=== PATIENT | female | born 1995 | race Caucasian/White ===

== ENCOUNTER 2018-08-02 17:04 | Emergency (ER) | payer OTHER, MEDICAID, SELFPAY ==
[2018-08-02 17:05] VITALS: BP 112/81; PULSE 67; RESP 16; TEMP 36.2; O2SAT 99
--- NOTE | 2018-08-02 19:38 | ED_ITS ---
HPI - Abdominal Pain <ASHISH Batres - Last Filed: 08/02/18 22:45> General Chief Complaint: Abdominal Pain Stated Complaint: lower left abdominal pain Time Seen by Provider: 08/02/18 19:12 Source: patient Mode of arrival: ambulatory Limitations: no limitations History of Present Illness HPI narrative: 22-year-old female with history of asthma here for complaint of left lower quadrant pain that started earlier today. She denies any trauma to the area. She states her last bowel movement was last night and was unremarkable. She denies any urinary symptoms. No flank pain. No nausea or vomiting. No urinary symptoms. She has tolerated p.o. intake. She denies any vaginal discharge or bleeding. No other concerns or complaints at this timeframe. She does not know her last menstrual cycle and she states she has irregular periods. She denies any stressors relievers of symptoms. MD complaint: abdominal pain Related Data Previous Rx's Medication Instructions Recorded ondansetron [Zofran ODT] 4 mg SUBLINGUAL Q6HP PRN #20 odt 02/15/17 albuterol sulfate [Ventolin HFA] 0 puff INH Q4HP PRN #1 ea 06/15/17 prednisone 40 mg PO QDAY #8 tab 06/15/17 Allergies Allergy/AdvReac Type Severity Reaction Status Date / Time No Known Allergies Allergy Uncoded 08/22/17 12:25 Review of Systems <ASHISH Batres - Last Filed: 08/02/18 22:45> Constitutional Denies chills, Denies fever(s), Denies lethargy and Denies weakness Eyes Denies change in vision, Denies eye discharge, Denies irritation and Denies loss of vision ENT Ears, Nose, Mouth, and Throat: Denies change in voice, Denies neck pain and Denies sore throat Cardiovascular Denies chest pain, Denies irregular heart rhythm, Denies lightheadedness, Denies palpitations, Denies dyspnea, Denies dyspnea on exertion and Denies orthopnea Respiratory Denies cough, Denies dyspnea, Denies dyspnea on exertion and Denies wheezing Gastrointestinal Gastrointestinal: Reports abdominal pain, Denies change in bowel habits, Denies diarrhea, Denies nausea and Denies vomiting Musculoskeletal Denies neck pain Neurologic Denies loss of vision and Denies weakness Endocrine Denies palpitations Hematologic/Lymphatic Denies easy bruising Allergic/Immunologic Denies wheezing Exam <ASHISH Batres - Last Filed: 08/02/18 22:45> Initial Vital Signs Initial Vital Signs: Vital Signs Temperature 97.1 F L 08/02/18 17:05 Pulse Rate 67 08/02/18 17:05 Respiratory Rate 16 08/02/18 17:05 Blood Pressure 112/81 08/02/18 17:05 Pulse Oximetry 99 08/02/18 17:05 Const General: cooperative and well developed Nutritional Appearance: well nourished Orientation: alert, awake, oriented x3 and not confused [facility] Mouth: oral mucosae normal and moist mucous membranes Eyes Conjunctivae: conjunctivae normal Sclera: sclerae normal Pupils: PERRL EOM: EOM intact bilaterally Resp Effort & Inspection: normal respiratory effort, able to speak in complete sentences, no respiratory distress and no use of accessory muscles Auscultation: clear to auscultation bilaterally, no rales, no rhonchi and no wheezes Cardio Rate: regular rate Rhythm: regular rhythm Heart Sounds: no click, no gallops, no murmurs and no rubs Pulses: normal peripheral pulses GI Inspection: non-distended Palpation: soft, no hepatosplenomegaly, No guarding, No pulsatile mass and tender (Tenderness left lower quadrant) Auscultation: normal bowel sounds Neuro General: alert, oriented x3, gait normal and no focal motor deficits Speech: speech normal <Mina Serna DO - Last Filed: 08/03/18 01:42> Initial Vital Signs Initial Vital Signs: Vital Signs Temperature 97.1 F L 08/02/18 17:05 Pulse Rate 67 08/02/18 17:05 Respiratory Rate 16 08/02/18 17:05 Blood Pressure 112/81 08/02/18 17:05 Pulse Oximetry 99 08/02/18 17:05 Course <ASHISH Batres - Last Filed: 08/02/18 22:45> Orders Ordered: ED Orders 08/02/18 20:05 Complete Blood Count AUTO DIFF Stat Comprehensive Metabolic Panel Stat Lipase Stat 08/02/18 21:04 CT abdomen pelvis w con Stat Urine Microscopic Stat Discontinued Medications Sodium Chloride (Normal Saline 0.9%) 1,000 mls @ 1,000 mls/hr IV BOLUS ONE Stop: 08/02/18 20:34 Last Infusion: 08/02/18 21:30 Dose: 0 mls/hr Admin: 08/02/18 20:10 Dose: 1,000 mls/hr Vital Signs - 8 hr 08/02/18 22:47 Temperature 97.9 F Pulse Rate 66 Respiratory Rate 14 Blood Pressure 120/79 Pulse Oximetry 99 <Mina Serna DO - Last Filed: 08/03/18 01:42> Orders Ordered: ED Orders 08/02/18 20:05 Complete Blood Count AUTO DIFF Stat Comprehensive Metabolic Panel Stat Lipase Stat 08/02/18 21:04 CT abdomen pelvis w con Stat Urine Microscopic Stat Discontinued Medications Sodium Chloride (Normal Saline 0.9%) 1,000 mls @ 1,000 mls/hr IV BOLUS ONE Stop: 08/02/18 20:34 Last Infusion: 08/02/18 21:30 Dose: 0 mls/hr Admin: 08/02/18 20:10 Dose: 1,000 mls/hr Vital Signs - 8 hr 08/02/18 22:47 Temperature 97.9 F Pulse Rate 66 Respiratory Rate 14 Blood Pressure 120/79 Pulse Oximetry 99 MDM - Abdominal Pain <ASHISH Batres - Last Filed: 08/02/18 22:45> Lab Data Result diagrams: 08/02/18 20:05 08/02/18 20:05 Lab Results 08/02/18 08/02/18 08/02/18 Range/Units 20:05 20:05 20:05 WBC 9.8 (4.5-11.0) X10^3/uL RBC 4.70 (4.0-5.2) X10^6/uL Hgb 13.9 (12.0-16.0) g/dL Hct 41.6 (36-46) % MCV 88.4 (80-100) fL MCH 29.6 (26-34) PG MCHC 33.5 (30-36) % RDW 12.7 (11.6-14.8) % Plt Count 216 (150-400) X10^3/uL Neut % (Auto) 58.7 (50-75) % Lymph % (Auto) 31.4 (25-40) % [place] % (Auto) 8.3 (3-14) % Eos % (Auto) 0.8 L (2-4) % Baso % (Auto) 0.8 (0-2) % Neut # (Auto) 5700 (1401-4646) /uL Lymph # (Auto) 3100 (2603-5538) /uL [place] # (Auto) 800 (0-900) /uL Eos # (Auto) 100 (0-450) /uL Baso # (Auto) 100 (0-100) /uL Sodium 139 (137-145) mmol/L Potassium 3.7 (3.4-5.1) mmol/L Chloride 102 (98-107) mmol/L Carbon Dioxide 27 (22-32) mmol/L BUN 9 (7-17) mg/dL Creatinine 0.70 (0.52-1.04) mg/dL Estimated GFR > 60.0 (>60) mL/min BUN/Creatinine Ratio 12.9 (6-22) Glucose 82 (70-100) mg/dL Calcium 9.9 (8.4-10.2) mg/dL Total Bilirubin 1.0 (0.2-1.3) mg/dL AST 30 (14-36) IU/L ALT 37 (9-52) IU/L Alkaline Phosphatase 82 (38-126) U/L Total Protein 7.6 (6.3-8.2) g/dL Albumin 4.5 (3.5-5.0) g/dL Globulin 3.1 (1.7-4.1) g/dL Albumin/Globulin Ratio 1.5 (1.0-2.8) Lipase 49 Cancelled (23-300) U/L Urine RBC (0-5/HPF) Urine WBC (0-5/HPF) Ur Squamous Epith Cells Urine Bacteria (None) Ur Culture Indicated? 08/02/18 Range/Units 21:04 WBC (4.5-11.0) X10^3/uL RBC (4.0-5.2) X10^6/uL Hgb (12.0-16.0) g/dL Hct (36-46) % MCV (80-100) fL MCH (26-34) PG MCHC (30-36) % RDW (11.6-14.8) % Plt Count (150-400) X10^3/uL Neut % (Auto) (50-75) % Lymph % (Auto) (25-40) % [place] % (Auto) (3-14) % Eos % (Auto) (2-4) % Baso % (Auto) (0-2) % Neut # (Auto) (8414-3047) /uL Lymph # (Auto) (2256-3243) /uL [place] # (Auto) (0-900) /uL Eos # (Auto) (0-450) /uL Baso # (Auto) (0-100) /uL Sodium (137-145) mmol/L Potassium (3.4-5.1) mmol/L Chloride (98-107) mmol/L Carbon Dioxide (22-32) mmol/L BUN (7-17) mg/dL Creatinine (0.52-1.04) mg/dL Estimated GFR (>60) mL/min BUN/Creatinine Ratio (6-22) Glucose (70-100) mg/dL Calcium (8.4-10.2) mg/dL Total Bilirubin (0.2-1.3) mg/dL AST (14-36) IU/L ALT (9-52) IU/L Alkaline Phosphatase (38-126) U/L Total Protein (6.3-8.2) g/dL Albumin (3.5-5.0) g/dL Globulin (1.7-4.1) g/dL Albumin/Globulin Ratio (1.0-2.8) Lipase (23-300) U/L Urine RBC None seen (0-5/HPF) Urine WBC None seen (0-5/HPF) Ur Squamous Epith Cells 1-5 /hpf Urine Bacteria None seen (None) Ur Culture Indicated? Cult not indicated Point of care testing: Point of Care Testing Test Results Negative Urine Dip Bedside Urine Glucose Negative Bedside Urine Bilirubin - Negative Bedside Urine Ketone ++ 40 Urine Specific [place] 1.030 Bedside Urine Occult Blood - Negative Bedside Urine pH 6.0 Bedside Urine Protein +/- 15 Bedside Urine Urobilinogen - Negative Bedside Urine Nitrite - Negative Bedside Urine Leukocytes - Negative Esterase MDM Narrative Medical decision making narrative: CBC was obtained and was unremarkable. Chem panel was also obtained and was unremarkable. Lipase was normal. Urinalysis was negative for and also for urinary tract infection. CT of the abdomen was obtained and was negative for any acute findings. No acute causes or emergent causes of her abdominal pain is identified. I suspect that this may be abdominal wall pain. Use ibuprofen as needed for any discomfort. Rest area. Follow up with primary care provider. Return emergency room for any worsening symptoms. <Mina Serna, DO - Last Filed: 08/03/18 01:42> Lab Data Lab Results 08/02/18 08/02/18 08/02/18 Range/Units 20:05 20:05 20:05 WBC 9.8 (4.5-11.0) X10^3/uL RBC 4.70 (4.0-5.2) X10^6/uL Hgb 13.9 (12.0-16.0) g/dL Hct 41.6 (36-46) % MCV 88.4 (80-100) fL MCH 29.6 (26-34) PG MCHC 33.5 (30-36) % RDW 12.7 (11.6-14.8) % Plt Count 216 (150-400) X10^3/uL Neut % (Auto) 58.7 (50-75) % Lymph % (Auto) 31.4 (25-40) % [place] % (Auto) 8.3 (3-14) % Eos % (Auto) 0.8 L (2-4) % Baso % (Auto) 0.8 (0-2) % Neut # (Auto) 5700 (1430-7142) /uL Lymph # (Auto) 3100 (7366-6326) /uL [place] # (Auto) 800 (0-900) /uL Eos # (Auto) 100 (0-450) /uL Baso # (Auto) 100 (0-100) /uL Sodium 139 (137-145) mmol/L Potassium 3.7 (3.4-5.1) mmol/L Chloride 102 (98-107) mmol/L Carbon Dioxide 27 (22-32) mmol/L BUN 9 (7-17) mg/dL Creatinine 0.70 (0.52-1.04) mg/dL Estimated GFR > 60.0 (>60) mL/min BUN/Creatinine Ratio 12.9 (6-22) Glucose 82 (70-100) mg/dL Calcium 9.9 (8.4-10.2) mg/dL Total Bilirubin 1.0 (0.2-1.3) mg/dL AST 30 (14-36) IU/L ALT 37 (9-52) IU/L Alkaline Phosphatase 82 (38-126) U/L Total Protein 7.6 (6.3-8.2) g/dL Albumin 4.5 (3.5-5.0) g/dL Globulin 3.1 (1.7-4.1) g/dL Albumin/Globulin Ratio 1.5 (1.0-2.8) Lipase 49 Cancelled (23-300) U/L Urine RBC (0-5/HPF) Urine WBC (0-5/HPF) Ur Squamous Epith Cells Urine Bacteria (None) Ur Culture Indicated? 08/02/18 Range/Units 21:04 WBC (4.5-11.0) X10^3/uL RBC (4.0-5.2) X10^6/uL Hgb (12.0-16.0) g/dL Hct (36-46) % MCV (80-100) fL MCH (26-34) PG MCHC (30-36) % RDW (11.6-14.8) % Plt Count (150-400) X10^3/uL Neut % (Auto) (50-75) % Lymph % (Auto) (25-40) % [place] % (Auto) (3-14) % Eos % (Auto) (2-4) % Baso % (Auto) (0-2) % Neut # (Auto) (5119-2285) /uL Lymph # (Auto) (2745-2455) /uL [place] # (Auto) (0-900) /uL Eos # (Auto) (0-450) /uL Baso # (Auto) (0-100) /uL Sodium (137-145) mmol/L Potassium (3.4-5.1) mmol/L Chloride (98-107) mmol/L Carbon Dioxide (22-32) mmol/L BUN (7-17) mg/dL Creatinine (0.52-1.04) mg/dL Estimated GFR (>60) mL/min BUN/Creatinine Ratio (6-22) Glucose (70-100) mg/dL Calcium (8.4-10.2) mg/dL Total Bilirubin (0.2-1.3) mg/dL AST (14-36) IU/L ALT (9-52) IU/L Alkaline Phosphatase (38-126) U/L Total Protein (6.3-8.2) g/dL Albumin (3.5-5.0) g/dL Globulin (1.7-4.1) g/dL Albumin/Globulin Ratio (1.0-2.8) Lipase (23-300) U/L Urine RBC None seen (0-5/HPF) Urine WBC None seen (0-5/HPF) Ur Squamous Epith Cells 1-5 /hpf Urine Bacteria None seen (None) Ur Culture Indicated? Cult not indicated Point of care testing: Point of Care Testing Test Results Negative Urine Dip Bedside Urine Glucose Negative Bedside Urine Bilirubin - Negative Bedside Urine Ketone ++ 40 Urine Specific [place] 1.030 Bedside Urine Occult Blood - Negative Bedside Urine pH 6.0 Bedside Urine Protein +/- 15 Bedside Urine Urobilinogen - Negative Bedside Urine Nitrite - Negative Bedside Urine Leukocytes - Negative Esterase Discharge Plan Departure Patient Disposition: Home Clinical Impression: Abdominal pain Qualifiers: Abdominal location: left lower quadrant Qualified Code(s): R10.32 - Left lower quadrant pain Discharge Date/Time: 08/02/18 22:47 Interventions: ED Discharge Assessment Last Done: 08/02/18 22:47 Instructions: DI for Abdominal Pain-Adult Activity Restrictions/Additional Instructions: Laboratory results and imaging today were unremarkable. No cause of your a abdomen pain is found. Suggested this may be that abdominal wall pain rest area. Use [id number] ibuprofen as needed for any discomfort. Follow up with her primary care provider. Return emergency room for any worsening symptoms. Prescriptions: No Action ondansetron [Zofran ODT] 4 MG tablet,disintegrating 4 mg Sublingual Q6HP PRNQty: 20 RF: 0 prednisone 20 MG tablet 40 mg PO QDAY Qty: 8 RF: 0 albuterol sulfate [Ventolin HFA] 90 MCG/PUFF HFA aerosol inhaler INH Q4HP PRNQty: 1 RF: 0 Referrals: [facility] [Provider Group] <Mina Serna DO - Last Filed: 08/03/18 01:42> Cosign ED Attending Sarai Attestation: I was available for consultation during this patient's emergency department encounter
[2018-08-02] MEDS: SODIUM CHLORIDE 0.9% 1,000 ML 1000 ML IV (20:10)
[2018-08-02 20:12] LABS: Add Manual Diff / Slide Review NO; Basophils Absolute Auto 100 /uL (0-100); Basophils Percent Auto 0.8 % (0-2); Eosinophils Absolute Auto 100 /uL (0-450); Eosinophils Percent Auto 0.8 % (2-4); Hematocrit 41.6 % (36-46); Hemoglobin 13.9 g/dL (12.0-16.0); Lymphocytes Absolute Auto 3100 /uL (1100-4500); Lymphocytes Percent Auto 31.4 % (25-40); Mean Corpuscular HGB Conc 33.5 % (30-36); Mean Corpuscular Hemoglobin 29.6 PG (26-34); Mean Corpuscular Volume 88.4 fL (80-100); Monocytes Absolute Auto 800 /uL (0-900); Monocytes Percent Auto 8.3 % (3-14); Neutrophils Absolute Auto 5700 /uL (1500-7000); Neutrophils Percent Auto 58.7 % (50-75); Platelet Count 216 X10^3/uL (150-400); Red Cell Distribution Width 12.7 % (11.6-14.8); White Blood Cell Count 9.8 X10^3/uL (4.5-11.0)
[2018-08-02 20:32] LABS: Alanine Aminotransferase 37 IU/L (9-52); Albumin 4.5 g/dL (3.5-5.0); Albumin Globulin Ratio 1.5 (1.0-2.8); Alkaline Phosphatase 82 U/L (38-126); Aspartate Aminotransferase 30 IU/L (14-36); BUN Creatinine Ratio 12.9 (6-22); Blood Urea Nitrogen 9 mg/dL (7-17); Calcium 9.9 mg/dL (8.4-10.2); Carbon Dioxide 27 mmol/L (22-32); Chloride 102 mmol/L (98-107); Estimated Glomerular Filt Rate > 60.0 mL/min (>60); Globulin 3.1 g/dL (1.7-4.1); Glucose 82 mg/dL (70-100); HEMOLYSIS < 15 (0-50); Lipase 49 U/L (23-300); Potassium 3.7 mmol/L (3.4-5.1); Sodium 139 mmol/L (137-145); Total Protein 7.6 g/dL (6.3-8.2)
--- NOTE | 2018-08-02 21:04 | DI.CT.S_ITS ---
PROCEDURE: CT ABDOMEN PELVIS W CON INDICATIONS: Left lower quadrant pain TECHNIQUE: After the administration of intravenous contrast, 5 mm thick sections acquired from the diaphragm to the symphysis. 5 mm coronal and sagittal reformats were acquired. For radiation dose reduction, the following was used: automated exposure control, adjustment of mA and/or kV according to patient size. COMPARISON: [facility], CT, CT ABDOMEN PELVIS WITH CONTRAST, 12/20/2017, 0:41. FINDINGS: Image quality: Excellent. ABDOMEN: Lung bases: Lung bases are clear. Heart size is normal. Solid organs: Liver is normal in size and enhancement. Gallbladder is normal. Biliary system is non dilated. Pancreas enhances normally. Spleen is normal in size and enhancement. No adrenal nodules. Kidneys demonstrate normal size and enhancement, without hydronephrosis. Peritoneum and bowel: Bowel loops demonstrate normal wall thickness and caliber. No free fluid or air. Nodes and vessels: No retroperitoneal or mesenteric adenopathy by size criteria. Aorta and inferior vena cava are normal in size. Miscellaneous: No ventral hernias. PELVIS: Genitourinary: Urinary bladder demonstrates mild wall thickening which may be due to under distention.. Retroverted uterus and ovaries appear normal. Miscellaneous: No inguinal hernias or adenopathy. Bones: No suspicious bony lesions. No vertebral body compression fractures. IMPRESSION: 1. No acute process. 2. Probable under distention of the urinary bladder. Correlation with UA to exclude cystitis is recommended. Dictated by: Maria Teresa Ellis M.D. on 08/02/2018 at 22:08 Approved by: Maria Teresa Ellis M.D. on 08/02/2018 at 22:13
[2018-08-02 21:14] LABS: Bacteria Urine None Seen; RBC Urine None Seen (0-5/HPF)
[2018-08-02 21:43] LABS: Culture Indicated Urine Cult Not Indicated; Squamous Epithelial Cell Urine 1-5 /HPF; WBC Urine None Seen (0-5/HPF)
[2018-08-02 22:47] VITALS: BP 120/79; PULSE 66; RESP 14; TEMP 36.6; O2SAT 99
== END 2018-08-02 22:47 | disposition home or self-care (01) ==
PROVIDERS: Emergency Medicine; Emergency Provider Nurse Practitioner Family
DX: R10.32 Left lower quadrant pain (principal)
CPT/HCPCS: 36591; 74177; 80053; 81003; 81015; 81025; 83690; 85025; 96360; 99283; 99284

== ENCOUNTER 2020-05-10 18:54 | Emergency (ER) | payer OTHER, SELFPAY ==
[2020-05-10 19:01] VITALS: BP 137/65; PULSE 59; RESP 20; TEMP 36.8; O2SAT 100
[2020-05-10 20:16] LABS: Add Manual Diff / Slide Review NO; Basophils Absolute Auto 0 /uL (0-100); Basophils Percent Auto 0.5 % (0-2); Eosinophils Absolute Auto 100 /uL (0-450); Eosinophils Percent Auto 1.1 % (2-4); Hematocrit 44.6 % (36-46); Hemoglobin 14.9 g/dL (12.0-16.0); Lymphocytes Absolute Auto 2400 /uL (1100-4500); Lymphocytes Percent Auto 27.2 % (25-40); Mean Corpuscular HGB Conc 33.3 % (30-36); Mean Corpuscular Hemoglobin 29.8 PG (26-34); Mean Corpuscular Volume 89.4 fL (80-100); Monocytes Absolute Auto 600 /uL (0-900); Monocytes Percent Auto 6.9 % (3-14); Neutrophils Absolute Auto 5800 /uL (1500-7000); Neutrophils Percent Auto 64.3 % (50-75); Platelet Count 200 X10^3/uL (150-400); Red Blood Cell Count 4.99 X10^6/uL (4.0-5.2); Red Cell Distribution Width 12.5 % (11.6-14.8)
[2020-05-10 20:26] LABS: Prothrombin Time 11.2 SECONDS (10.1-12.7)
[2020-05-10 20:28] LABS: Alanine Aminotransferase 17 IU/L (<35); Albumin 4.7 g/dL (3.5-5.0); Albumin Globulin Ratio 1.3 (1.0-2.8); Alkaline Phosphatase 79 U/L (38-126); Aspartate Aminotransferase 25 IU/L (14-36); BUN Creatinine Ratio 18.7 (6-22); Bilirubin Total 0.5 mg/dL (0.2-1.3); Blood Urea Nitrogen 14 mg/dL (7-17); Calcium 10.1 mg/dL (8.4-10.2); Carbon Dioxide 31 mmol/L (22-32); Chloride 102 mmol/L (98-107); Estimated Glomerular Filt Rate > 60.0 mL/min (>60); Globulin 3.7 g/dL (1.7-4.1); Glucose 93 mg/dL (70-100); HEMOLYSIS < 15 (0-50); Lipase 80 U/L (23-300); Potassium 3.8 mmol/L (3.4-5.1); Sodium 137 mmol/L (137-145); Total Protein 8.4 g/dL (6.3-8.2)
[2020-05-10 20:29] LABS: PTT Partial Thromboplastin Tim 37 SECONDS (26.4-36.2)
--- NOTE | 2020-05-10 21:56 | ED_ITS ---
HPI - Abdominal Pain General Chief Complaint: Abdominal Pain Stated Complaint: pain in stomach Time Seen by Provider: 05/10/20 21:55 Source: patient Mode of arrival: Ambulatory History of Present Illness HPI narrative: 24-year-old woman presents with abdominal pain been intermittently worse over the last 2 weeks. As we began talking she clearly is significantly overwhelmed, begins crying asks for complete resolution of her heartburn and wants to know why she has had years of abdominal pain with ?only poking and prodding, and no answers from any of the physicians with whom she spoken. On further questioning she has a long history of intermittent constipation and diarrhea. She currently is living with her in the bedroom of her grandfather's house. Her stepfather and his new girlfriend (apparently he was recently from her mother) also lives in the same house and apparently is making lifestyle choices in terms of drug use that makes the patient extremely uncomfortable and increasingly anxious. Her feels that her poor eating habits (she notes that she eats that either Son's or jacket blocks at least once or twice a day) are likely contributing to her overall issues. She does note increasing feelings of anxiety, being overwhelmed, worsening constipation, chronic abdominal pain worse on the right side, regular menstrual cycles, poor sleep, denies suicidal ideation or homicidal ideation Related Data Previous Rx's Medication Instructions Recorded ondansetron [Zofran ODT] 4 mg SUBLINGUAL Q6HP PRN #20 odt 02/15/17 albuterol sulfate [Ventolin HFA] 0 puff INH Q4HP PRN #1 ea 06/15/17 prednisone 40 mg PO QDAY #8 tab 06/15/17 escitalopram oxalate 5 mg PO DAILY #30 tab 05/11/20 polyethylene glycol 3350 17 g PO DAILY #72 ea 05/11/20 Allergies Allergy/AdvReac Type Severity Reaction Status Date / Time No Known Allergies Allergy Uncoded 08/22/17 12:25 Review of Systems Review of Systems ROS Unobtainable: All systems reviewed & are unremarkable except as noted in HPI and below Exam Narrative Exam Narrative: General: Healthy appearing, significant emotional distress Able to give a complete and coherent history. Well-nourished well-developed HEENT: Moist mucous membranes, normal sclera with reactive pupils, Respiratory: Lungs are clear to auscultation, no wheezing no rales no rhonchi. Full and symmetrical air movement Cardiac: Regular rate and rhythm no murmurs no bruits Abdomen: Soft, mild tenderness right paracolic gutter left paracolic gutter with no rebound or guarding, good bowel tones, no flank pain Skin: Warm and dry, no rashes Neurologic: Grossly neurologically intact with no obvious asymmetries or abnormalities Extremities: No trauma, well perfused Psych: Frustrated, anxious, fragile with fluent speech patterns, improved eye contact by end of our discussion and no evidence of hallucination Initial Vital Signs Initial Vital Signs: Vital Signs Temperature 98.2 F 05/10/20 19:01 Pulse Rate 59 L 05/10/20 19:01 Respiratory Rate 20 05/10/20 19:01 Blood Pressure 137/65 05/10/20 19:01 Pulse Oximetry 100 05/10/20 19:01 Course Orders Ordered: ED Orders 05/10/20 22:17 XR abdomen 1V Stat Discontinued Medications Sodium Chloride (Normal Saline 0.9%) 1,000 mls @ 1,000 mls/hr IV BOLUS ONE Stop: 05/10/20 23:16 Last Infusion: 05/11/20 00:10 Dose: 0 mls/hr Documented by: Admin: 05/10/20 22:25 Dose: 1,000 mls/hr Documented by: BRAD Magnesium Citrate (Magnesium Citrate 300 Ml Solution) 300 ml PO NOW ONE Stop: 05/11/20 00:30 Last Admin: 05/11/20 00:32 Dose: 300 ml Documented by: BARD Ondansetron HCl (Ondansetron 4 Mg/2 Ml Inj) 4 mg IV NOW ONE Stop: 05/10/20 22:18 Last Admin: 05/10/20 22:25 Dose: 4 mg Documented by: BRAD Pantoprazole Sodium (Pantoprazole 40 Mg Vial) 40 mg IV NOW ONE Stop: 05/10/20 22:18 Last Admin: 05/10/20 22:25 Dose: 40 mg Documented by: BRAD Vital Signs Vital signs: Vital Signs - 8 hr 05/11/20 00:41 Pulse Rate 58 L Respiratory Rate 16 Blood Pressure 125/67 Pulse Oximetry 99 MDM - Abdominal Pain Medical Records Attestation: I reviewed the patient's medical records. Lab Data Attestation: I reviewed the patient's lab results. Result diagrams: 05/10/20 20:10 05/10/20 20:10 Labs: Lab Results 05/10/20 05/10/20 05/10/20 Range/Units 20:10 20:10 20:10 WBC 9.0 (4.5-11.0) X10^3/uL RBC 4.99 (4.0-5.2) X10^6/uL Hgb 14.9 (12.0-16.0) g/dL Hct 44.6 (36-46) % MCV 89.4 (80-100) fL MCH 29.8 (26-34) PG MCHC 33.3 (30-36) % RDW 12.5 (11.6-14.8) % Plt Count 200 (150-400) X10^3/uL Neut % (Auto) 64.3 (50-75) % Lymph % (Auto) 27.2 (25-40) % [place] % (Auto) 6.9 (3-14) % Eos % (Auto) 1.1 L (2-4) % Baso % (Auto) 0.5 (0-2) % Neut # (Auto) 5800 (2161-8197) /uL Lymph # (Auto) 2400 (0260-1921) /uL [place] # (Auto) 600 (0-900) /uL Eos # (Auto) 100 (0-450) /uL Baso # (Auto) 0 (0-100) /uL PT 11.2 (10.1-12.7) SECONDS INR 1.0 (0.9-1.3) APTT 37 H (26.4-36.2) SECONDS Sodium 137 (137-145) mmol/L Potassium 3.8 (3.4-5.1) mmol/L Chloride 102 (98-107) mmol/L Carbon Dioxide 31 (22-32) mmol/L BUN 14 (7-17) mg/dL Creatinine 0.75 (0.52-1.04) mg/dL Estimated GFR > 60.0 (>60) mL/min BUN/Creatinine Ratio 18.7 (6-22) Glucose 93 (70-100) mg/dL Calcium 10.1 (8.4-10.2) mg/dL Total Bilirubin 0.5 (0.2-1.3) mg/dL AST 25 (14-36) IU/L ALT 17 (<35) IU/L Alkaline Phosphatase 79 (38-126) U/L Total Protein 8.4 H (6.3-8.2) g/dL Albumin 4.7 (3.5-5.0) g/dL Globulin 3.7 (1.7-4.1) g/dL Albumin/Globulin Ratio 1.3 (1.0-2.8) Lipase 80 (23-300) U/L Point of care testing: Point of Care Testing Test Results Negative Urine Dip Bedside Urine Glucose Negative Bedside Urine Bilirubin - Negative Bedside Urine Ketone - Negative Urine Specific [place] 1.020 Bedside Urine Occult Blood - Negative Bedside Urine pH 6.5 Bedside Urine Protein - Negative Bedside Urine Urobilinogen - Negative Bedside Urine Nitrite - Negative Bedside Urine Leukocytes - Negative Esterase Imaging Data Abdominal x-ray: Attestation: I personally reviewed and interpreted this imaging study as follows: My Impression: No obstruction, moderate right-sided stool loading MDM Narrative Medical decision making narrative: 24-year-old woman with increased social stressors and anxiety likely contributing to irritable bowel syndrome with intermittent constipation and diarrhea. Severe constipation is likely responsible for the chronic abdominal pain she has complained of for a number of years. We discussed diet changes as well as lifestyle changes that may be able to decrease overall stress. She was interested in starting an antidepressant to help with both the stress and anxiety and willing to consider magnesium citrate to try to clear her current bowel issues and then begin daily MiraLax to prevent further constipation. We did talk about mindbody connection with her stress causing much of her constipation and abdominal pain. She was quite receptive to the entire discussion. Willing to begin antidepressants, escitalopram is covered by her insurance. Prescription is written along with clear instructions to follow-up with her primary care physician in the near future regarding safety and efficacy of medication for her. She is safe for home discharge at this time Discharge Plan Departure Patient Disposition: Home Clinical Impression: Acute reaction to situational stress, Chronic GERD Depression Qualifiers: Depression Type: unspecified Qualified Code(s): F32.9 - Major depressive disorder, single episode, unspecified Constipation Qualifiers: Constipation type: unspecified constipation type Qualified Code(s): K59.00 - Constipation, unspecified Instructions: DI for Constipation, DI for Anxiety -- Adult Activity Restrictions/Additional Instructions: Thank you for coming in today. Your situation sounds very frustrating I believe that your living situation is causing significant stress which is associated with depression which is causing some of your other symptoms like the heartburn in the constipation. The constipation is absolutely causing your abdominal pain particularly on the right side We talked about changing your diet to healthier options Continuing to work on alternate living situations so you do not have to be in the home environment that is making you uncomfortable To help with the anxiety and developing depression I am going to suggest to start escitalopram, 5 mg every morning. This is an antidepressant. You will need to follow-up with your regular doctor in 3-4 weeks. For your constipation please drink the entire bottle of magnesium citrate tomorrow to clean your colon out completely To prevent additional constipation, use 1 full cap full of MiraLax every day in a large glass of water or tea Prescriptions: New escitalopram oxalate 5 mg tablet 5 mg PO DAILY Qty: 30 RF: 1 polyethylene glycol 3350 8.5 gram powder in packet 17 g PO DAILY Qty: 72 RF: 0 No Action ondansetron [Zofran ODT] 4 MG tablet,disintegrating 4 mg Sublingual Q6HP PRNQty: 20 RF: 0 prednisone 20 MG tablet 40 mg PO QDAY Qty: 8 RF: 0 albuterol sulfate [Ventolin HFA] 90 MCG/PUFF HFA aerosol inhaler 0 puff INH Q4HP PRNQty: 1 RF: 0 Stand Alone Forms: Work Release Note
--- NOTE | 2020-05-10 22:17 | DI.RAD.S_ITS ---
PROCEDURE: XR ABDOMEN 1V INDICATIONS: abdominal pain TECHNIQUE: One view of the abdomen acquired. COMPARISON: None. FINDINGS: Surgical changes and devices: None. Bowel: Bowel gas pattern is normal. Moderate stool Soft tissues: No suspicious abdominal calcifications. Visualized solid organ contours appear normal in size. Bones: No suspicious bony lesions. IMPRESSION: Moderate stool. No specific evidence of bowel obstruction seen at this time although if the patient's symptoms do not improve, continued surveillance with abdominal series radiographs could be performed. Dictated by: Jaison Carrington M.D. on 05/11/2020 at 8:55 Approved by: aJison Carrington M.D. on 05/11/2020 at 8:56
[2020-05-10] MEDS: ONDANSETRON 4 MG/2 ML INJ IV (22:25)
[2020-05-10] MEDS: SODIUM CHLORIDE 0.9% 1,000 ML 1000 ML IV (22:25)
[2020-05-10] MEDS: PANTOPRAZOLE 40 MG VIAL IV (22:25)
[2020-05-11] MEDS: MAGNESIUM CITRATE 300 ML SOLUTION PO (00:32)
[2020-05-11 00:41] VITALS: BP 125/67; PULSE 58; RESP 16; O2SAT 99
== END 2020-05-11 00:42 | disposition home or self-care (01) ==
PROVIDERS: Emergency Provider Emergency Medicine
DX: F43.0 Acute stress reaction (principal); K21.9 Gastro-esophageal reflux disease without esophagitis; F32.9 Major depressive disorder, single episode, unspecified; K59.00 Constipation, unspecified
CPT/HCPCS: 36415; 74018; 80053; 81003; 81025; 83690; 85025; 85610; 85730; 96361; 96374; 96375; 99283; 99284; C9113; J2405

== ENCOUNTER 2020-08-26 11:54 | Emergency (ER) | payer OTHER, MEDICAID, SELFPAY ==
[2020-08-26 12:03] VITALS: BP 116/76; PULSE 80; RESP 16; TEMP 36.7; O2SAT 100; BMI 29.8
--- NOTE | 2020-08-26 14:16 | ED.URI ---
HPI - URI/Sore Throat General Chief Complaint: Upper Respiratory Symptoms Stated Complaint: SORE THROAT, SWOLLEN GLANDS IN NECK Time Seen by Provider: 08/26/20 14:12 Source: patient Mode of arrival: Ambulatory Limitations: no limitations History of Present Illness HPI Narrative: Patient is a 24-year-old female who presents with sore throat since yesterday. She says that maybe she has had a low-grade fever she denies any cough. She said yesterday she had a very runny nose. Complaint: sore throat Onset (ago): day(s) (1) Duration: constant Severity: moderate Relieving factors: nothing Related Data Previous Rx's Medication Instructions Recorded ondansetron [Zofran ODT] 4 mg SUBLINGUAL Q6HP PRN #20 odt 02/15/17 albuterol sulfate [Ventolin HFA] 0 puff INH Q4HP PRN #1 ea 06/15/17 prednisone 40 mg PO QDAY #8 tab 06/15/17 escitalopram oxalate 5 mg PO DAILY #30 tab 05/11/20 polyethylene glycol 3350 17 g PO DAILY #72 ea 05/11/20 Allergies Allergy/AdvReac Type Severity Reaction Status Date / Time No Known Allergies Allergy Uncoded 08/22/17 12:25 Review of Systems Review of Systems ROS Unobtainable: All systems reviewed & are unremarkable except as noted in HPI and below Constitutional Constitutional: Denies chills, Denies fever(s), Denies lethargy and Denies weakness ENT Ears, Nose, Mouth, and Throat: Reports system reviewed and no additional complaints, except as documented, Reports nasal discharge, Denies nose pain, Denies sinus pain, Reports sore throat and Denies tongue swelling Cardiovascular Cardiovascular: Denies chest pain, Denies irregular heart rhythm, Denies lightheadedness, Denies palpitations, Denies dyspnea, Denies dyspnea on exertion and Denies orthopnea Respiratory Respiratory: Denies cough, Denies dyspnea, Denies dyspnea on exertion and Denies wheezing Gastrointestinal Gastrointestinal: Denies nausea and Denies vomiting Musculoskeletal Musculoskeletal: Denies myalgias Integumentary/Breasts Skin/Breast: Denies pruritus, Denies erythema, Denies rash and Denies wounds Neurologic Neurologic: Denies weakness Endocrine Endocrine: Denies palpitations Allergic/Immunologic Allergic/Immunologic: Denies tongue swelling and Denies wheezing Patient History Medical History Anxiety Depression Social History Smoking Status: Never smoker Smoking Status: Never smoker Substance Use Type: marijuana Exam Initial Vital Signs Initial Vital Signs: Vital Signs Temperature 98.1 F 08/26/20 12:03 Pulse Rate 80 08/26/20 12:03 Respiratory Rate 16 08/26/20 12:03 Blood Pressure 116/76 08/26/20 12:03 Pulse Oximetry 100 08/26/20 12:03 GENERAL: Well-appearing, well-nourished and in no acute distress. HEENT: Head atraumatic,EOMI, pupils reactive, face symmetric, moist mucous membranes PHARYNX: Minimal erythema no tonsillar exudate no uvular no swelling CARDIOVASCULAR: Regular rate and rhythm without murmurs, rubs or gallops. RESPIRATORY: Breath sounds equal bilaterally, no wheezes rales or rhonchi. EXTREMITIES: Normal range of motion, no clubbing or edema. Neurovascularly intact NEUROLOGICAL: Alert and oriented x4. SKIN: Warm, dry, no laceration, no petechiae, no rashes or lesions. Course Vital Signs Vital signs: Vital Signs - 8 hr 08/26/20 12:03 Temperature 98.1 F Pulse Rate 80 Respiratory Rate 16 Blood Pressure 116/76 Pulse Oximetry 100 MDM - URI/Sore Throat Lab Data Labs: Point of Care Testing Rapid Strep A Negative MDM Narrative Medical decision making narrative: At this time strep is negative she overall appears well. Probably viral pharyngitis. Discharge Plan Departure Patient Disposition: Home Clinical Impression: Viral pharyngitis Instructions: DI for Viral Pharyngitis Activity Restrictions/Additional Instructions: *You have been diagnosed with viral pharyngitis *What to do: At this time no antibiotics are indicated. Please monitor for any worsening symptoms you may need antibiotics if things continue or worsen *Continue to take medications as directed Tylenol 650 mg every 4-6 hours if needed for [id number] pain Motrin 800 mg every 8 hours if needed for [id number] pain *Follow up with your primary care provider in 2-3 days *Return to ER if you should have increased throat pain, difficulty swallowing, fever more than 100.4, ongoing symptoms for more than 5-7 days [or] any new, worsening or concerning symptoms Prescriptions: No Action ondansetron [Zofran ODT] 4 MG tablet,disintegrating 4 mg Sublingual Q6HP PRNQty: 20 RF: 0 prednisone 20 MG tablet 40 mg PO QDAY Qty: 8 RF: 0 albuterol sulfate [Ventolin HFA] 90 MCG/PUFF HFA aerosol inhaler 0 puff INH Q4HP PRNQty: 1 RF: 0 escitalopram oxalate 5 mg tablet 5 mg PO DAILY Qty: 30 RF: 1 polyethylene glycol 3350 8.5 gram powder in packet 17 g PO DAILY Qty: 72 RF: 0
== END 2020-08-26 14:26 | disposition home or self-care (01) ==
PROVIDERS: Emergency Provider Emergency Medicine
DX: J02.9 Acute pharyngitis, unspecified (principal)
CPT/HCPCS: 87880; 99281; 99282

== ENCOUNTER 2020-09-18 14:44 | Emergency (ER) | payer OTHER, MEDICAID, SELFPAY ==
[2020-09-18 15:06] VITALS: BP 106/70; PULSE 79; RESP 18; TEMP 36.8; O2SAT 98; BMI 31.0
--- NOTE | 2020-09-18 16:02 | ED.WOUNDLAC ---
HPI - Wound/Laceration General Chief Complaint: Wound/Laceration Stated Complaint: cat bite left hand Time Seen by Provider: 09/18/20 15:37 Source: patient Mode of arrival: Family Vehicle Limitations: no limitations History of Present Illness HPI narrative: Left hand cat bite. She states that her own cat bit her hand will she was trying to give her cat a bath. She has a puncture wound and some mild redness. It is tender to touch. She also has a known torn tendon on her left hand. But she has no numbness tingling or weakness. Onset (ago): day(s) Related Data Previous Rx's Medication Instructions Recorded ondansetron [Zofran ODT] 4 mg SUBLINGUAL Q6HP PRN #20 odt 02/15/17 albuterol sulfate [Ventolin HFA] 0 puff INH Q4HP PRN #1 ea 06/15/17 prednisone 40 mg PO QDAY #8 tab 06/15/17 escitalopram oxalate 5 mg PO DAILY #30 tab 05/11/20 polyethylene glycol 3350 17 g PO DAILY #72 ea 05/11/20 amoxicillin-pot clavulanate 1 tab PO Q12H #14 tab 09/18/20 [Augmentin] Allergies Allergy/AdvReac Type Severity Reaction Status Date / Time cephalexin [From Keflex] Allergy Intermediate Hives Verified 09/18/20 15:15 Review of Systems Review of Systems Narrative: GENERAL: Denies chills,fever HEENT: Denies throat pain RESPIRATORY: Denies dyspnea, cough, wheezing CARDIOVASCULAR: Denies chest pain, palpitations GASTROINTESTINAL: Denies nausea, vomiting MUSCULOSKELETAL: Denies extremity pain, injury SKIN: Erythema, see HPI NEUROLOGIC: Denies weakness, dizziness, headache, numbness 8 point review of systems is negative except for those stated above and HPI Patient History Medical History Anxiety Depression Social History Smoking Status: Current some day smoker Smoking Status: Current some day smoker tobacco type: cigarettes alcohol intake frequency: holidays/special occasions only Substance Use Type: marijuana Exam Initial Vital Signs Initial Vital Signs: Vital Signs Temperature 98.3 F 09/18/20 15:06 Pulse Rate 79 09/18/20 15:06 Respiratory Rate 18 09/18/20 15:06 Blood Pressure 106/70 09/18/20 15:06 Pulse Oximetry 98 09/18/20 15:06 GENERAL: Well-appearing, well-nourished and in no acute distress. CARDIOVASCULAR: peripheral pulses in tact, cap refill <2 sec RESPIRATORY: No respiratory distress, speaks in full sentences without difficulty EXTREMITIES: Normal range of motion, no clubbing or edema. Neurovascularly intact Left hand able to make okay sign flex and extend all fingers NEUROLOGICAL: Cranial nerves II through XII grossly intact. Normal gait and speech. SKIN: Left hand puncture wound noted between 1st and 2nd digit on dorsal side with surrounding erythema Course Orders Ordered: ED Orders 09/18/20 16:06 XR hand LT 2V Stat Discontinued Medications Acetaminophen (Acetaminophen 325 Mg Tablet) 650 mg PO Q6HR PRN PRN Reason: Fever/Mild Pain (1-3) Last Admin: 09/18/20 16:30 Dose: 650 mg Documented by: ROCK Diphtheria/Tetanus/Acell Pertussis (Tet,Diph,Pertuss(Acell),Vac/Pf 0.5 Ml Syringe) 0.5 ml IM .ONCE ONE Stop: 09/18/20 16:21 Last Admin: 09/18/20 16:24 Dose: 0.5 ml Documented by: ROCK Vital Signs Vital signs: Vital Signs - 8 hr 09/18/20 15:06 Temperature 98.3 F Pulse Rate 79 Respiratory Rate 18 Blood Pressure 106/70 Pulse Oximetry 98 [facility] - Wound/Laceration Imaging Data Extremity x-ray #1: Radiologist's Impression: PROCEDURE: XR HAND LT 2V INDICATIONS: cat bite TECHNIQUE: 2 views of the hand(s) acquired. COMPARISON: None. FINDINGS: Bones: No fractures or dislocations. Carpal bones are normally aligned. No suspicious bony lesions. Soft tissues: No suspicious soft tissue calcifications. No radiopaque foreign bodies are seen. IMPRESSION: No radiopaque foreign bodies are seen. No bony involvement is seen. Dictated by: Harshad Cespedes M.D. on 09/18/2020 at 15:21 [facility] Narrative Medical decision making narrative: Patient states she is allergic to Keflex but she thinks she has had amoxicillin. She has a rash to Keflex and is willing to try Augmentin. She will return if she has read burns. Discharge Plan Departure Patient Disposition: Home Clinical Impression: Cat bite Qualifiers: Encounter type: initial encounter Qualified Code(s): W55.01XA - Bitten by cat, initial encounter Instructions: DI for Cat Bite Activity Restrictions/Additional Instructions: *You have been diagnosed with cat bite left hand *What to do: Keep clean and dry with soap and water. This will be tender to touch for a few days. Monitor for worsening redness *Continue to take medications as directed Augmentin 875 mg twice a day for 7 days *Follow up with your primary care provider in 2-3 days *Return to ER if you should have increasing redness, increasing pain, inability to move fingers or any new, worsening or concerning symptoms Prescriptions: New amoxicillin-pot clavulanate [Augmentin] 875-125 mg tablet 1 tab PO Q12H Qty: 14 RF: 0 No Action ondansetron [Zofran ODT] 4 MG tablet,disintegrating 4 mg Sublingual Q6HP PRNQty: 20 RF: 0 prednisone 20 MG tablet 40 mg PO QDAY Qty: 8 RF: 0 albuterol sulfate [Ventolin HFA] 90 MCG/PUFF HFA aerosol inhaler 0 puff INH Q4HP PRNQty: 1 RF: 0 escitalopram oxalate 5 mg tablet 5 mg PO DAILY Qty: 30 RF: 1 polyethylene glycol 3350 8.5 gram powder in packet 17 g PO DAILY Qty: 72 RF: 0
--- NOTE | 2020-09-18 16:06 | DI.RAD.S_ITS ---
PROCEDURE: XR HAND LT 2V INDICATIONS: cat bite TECHNIQUE: 2 views of the hand(s) acquired. COMPARISON: None. FINDINGS: Bones: No fractures or dislocations. Carpal bones are normally aligned. No suspicious bony lesions. Soft tissues: No suspicious soft tissue calcifications. No radiopaque foreign bodies are seen. IMPRESSION: No radiopaque foreign bodies are seen. No bony involvement is seen. Dictated by: Harshad Cespedes M.D. on 09/18/2020 at 15:21 Approved by: Harshad Cespedes M.D. on 09/18/2020 at 15:22
[2020-09-18] MEDS: TET,DIPH,PERTUSS(ACELL),VAC/PF 0.5 ML SYRINGE IM (16:24)
[2020-09-18] MEDS: ACETAMINOPHEN 325 MG TABLET 650 MG PO (16:30)
== END 2020-09-18 16:35 | disposition home or self-care (01) ==
PROVIDERS: Emergency Provider Emergency Medicine
DX: S61.452A Open bite of left hand, initial encounter (principal); W55.01XA Bitten by cat, initial encounter; Z23 Encounter for immunization
CPT/HCPCS: 73120; 90471; 99283; 99284; 90715

== ENCOUNTER 2021-08-28 02:21 | Emergency (ER) | payer OTHER, MEDICAID, SELFPAY ==
--- NOTE | 2021-08-28 02:24 | ED.URI ---
HPI - URI/Sore Throat General Chief Complaint: Upper Respiratory Symptoms Stated Complaint: sore throat for 2 hrs Time Seen by Provider: 08/28/21 02:24 History of Present Illness HPI Narrative: 25-year-old female smoker presents with lioipu-nv-xax and a chief complaint of difficulty swallowing and sore throat for the past 2 hours. She states she has had some nasal congestion and runny nose as well as sore throat. She denies any chest pain or trouble breathing nor any rash or diarrhea. She states that she feels in some ways similar to when she had an allergic reaction previously. She denies any exposure to new foods, medications, lotions or soaps Related Data Previous Rx's Medication Instructions Recorded ondansetron 4 mg disintegrating 4 mg SUBLINGUAL Q6HP PRN #20 odt 02/15/17 tablet (Zofran ODT) albuterol sulfate 90 mcg/actuation 0 puff INH Q4HP PRN #1 ea 06/15/17 aerosol inhaler (Ventolin HFA) prednisone 20 mg tablet 40 mg PO QDAY #8 tab 06/15/17 escitalopram oxalate 5 mg tablet 5 mg PO DAILY #30 tab 05/11/20 polyethylene glycol 3350 8.5 gram 17 g PO DAILY #72 ea 05/11/20 oral powder packet amoxicillin 875 mg-potassium 1 tab PO Q12H #14 tab 09/18/20 clavulanate 125 mg tablet (Augmentin) prednisone 20 mg tablet 40 mg PO DAILY 5 Days tab 08/28/21 Allergies Allergy/AdvReac Type Severity Reaction Status Date / Time cephalexin [From Keflex] Allergy Intermediate Hives Verified 09/18/20 15:15 Review of Systems Review of Systems Narrative: GENERAL: Denies chills, fatigue, malaise, fever, sweats. HEENT: See HPI RESPIRATORY: Denies dyspnea, cough, wheezing, hemoptysis, sputum. CARDIOVASCULAR: Denies chest pain, palpitations, orthopnea, edema, GASTROINTESTINAL: Denies nausea, vomiting, abdominal pain, diarrhea, constipation, melena. : Denies dysuria, frequency, incontinence, hematuria, urinary retention. MUSCULOSKELETAL: denies weakness, joint pain, or bony pain SKIN: Denies rash, skin lesions, or other NEUROLOGIC: Denies weakness, headache, numbness, change in speech, confusion, seizures, incoordination. PSYCHIATRIC: No concerning psychosocial issues. 12 point review of systems is negative except for those stated above Patient History Medical History Anxiety Depression Social History Smoking Status: Current some day smoker Smoking Status: Current some day smoker tobacco type: cigarettes alcohol intake frequency: holidays/special occasions only Substance Use Type: marijuana Exam Narrative Exam Narrative: GENERAL: 25] year old patient appears stated age. Well-developed patient, in mild distress. HEAD: Atraumatic. Normocephalic. EYES: Pupils equal round and reactive. Extraocular motions intact. No scleral icterus. No injection or drainage. ENT: No face, tongue, lip swelling Nose without bleeding, purulent drainage. Throat without erythema, tonsillar hypertrophy or exudate. Airway patent. Clear postnasal drip NECK: Trachea midline. Non tender CARDIOVASCULAR: Regular rate and rhythm without murmurs, gallops, or rubs. RESPIRATORY: Clear to auscultation. Breath sounds equal bilaterally. No wheezes, rales, or rhonchi. GASTROINTESTINAL: Abdomen soft, non-tender, nondistended. EXTREMITIES: No edema or joint tenderness. BACK: Nontender without deformity or crepitance. No flank tenderness. NEURO: AOx3. SKIN: No rash or erythema of visible areas Initial Vital Signs Initial Vital Signs: Vital Signs Temperature 97.8 F 08/28/21 02:29 Pulse Rate 65 08/28/21 02:29 Respiratory Rate 17 08/28/21 02:29 Blood Pressure 124/65 08/28/21 02:29 Pulse Oximetry 98 08/28/21 02:29 Course Orders Ordered: ED Orders 08/28/21 02:34 Throat Culture Stat Vital Signs Vital signs: Vital Signs - 8 hr 08/28/21 02:29 Temperature 97.8 F Pulse Rate 65 Respiratory Rate 17 Blood Pressure 124/65 Pulse Oximetry 98 MDM - URI/Sore Throat MDM Narrative Medical decision making narrative: Patient is very reassuring history and physical exam. With complaint of difficulty swallowing secondary to pain in the presence of nasal congestion and clear postnasal drip this seems most likely upper respiratory infection versus seasonal allergies though allergic reaction and strep considered. Rapid strep was negative, throat culture is sent. Patient has no trouble breathing, no facial swelling, no rash, no need for supplemental oxygen. Return precautions discussed, initial round of antihistamines administered here in the department and prescription sent to her pharmacy of choice Discharge Plan Departure Patient Disposition: Home Clinical Impression: Pharyngitis Instructions: Sore Throat Activity Restrictions/Additional Instructions: *You have been diagnosed with [sore throat. Rapid strep test was negative, as we discussed your history and physical exam are reassuring and there is no signs of anaphylaxis or severe allergic reaction. Please consider the use of kboh-vvu-qrgireo antihistamines such as Benadryl or new were, nonsedating agents such as Sameera, Zyrtec, Claritin, etc *What to do: *Please continue to take your regular medications as directed. [ x] New medication written as a paper prescription *Please follow up with your primary care provider in 2-3 days, call for an appointment. Let them know you were seen in the Emergency Department and that we ask that you be seen in follow up. We will electronically transmit a record of today's note if your PCP is in our system *In addition to the antihistamine and steroid prescription mentioned above please also consider the use of another type of nlmo-vkg-oibluda antihistamine (H2 ed) such as ranitidine or famotidine which can be safely used together with these medications *If you do not have a primary care provider please contact the [facility] Resource line at [phone]. They will ask some questions about your medical history and help get you set up with a doctor in the community. *Return to Emergency Department if you should have any new, worsening or concerning symptoms, such as [fever greater than 101 F, shaking chills, worsening pain, persistent vomiting or other bothersome symptoms] Prescriptions: New prednisone 20 mg tablet 40 mg PO DAILY 5 Days 0RF No Action ondansetron [Zofran ODT] 4 MG tablet,disintegrating 4 mg Sublingual Q6HP PRNQty: 20 0RF prednisone 20 MG tablet 40 mg PO QDAY Qty: 8 0RF albuterol sulfate [Ventolin HFA] 90 MCG/PUFF HFA aerosol inhaler 0 puff INH Q4HP PRNQty: 1 0RF escitalopram oxalate 5 mg tablet 5 mg PO DAILY Qty: 30 1RF polyethylene glycol 3350 8.5 gram powder in packet 17 g PO DAILY Qty: 72 0RF amoxicillin-pot clavulanate [Augmentin] 875-125 mg tablet 1 tab PO Q12H Qty: 14 0RF
[2021-08-28 02:29] VITALS: BP 124/65; PULSE 65; RESP 17; TEMP 36.6; O2SAT 98; BMI 31.2
[2021-08-28] MEDS: predniSONE 20 MG TABLET 40 MG PO (03:06)
[2021-08-28] MEDS: FAMOTIDINE 20 MG TABLET PO (03:06)
[2021-08-28 03:33] VITALS: BP 110/68; PULSE 61; RESP 18; O2SAT 98
== END 2021-08-28 03:34 | disposition home or self-care (01) ==
PROVIDERS: Emergency Provider Emergency Medicine
DX: J02.9 Acute pharyngitis, unspecified (principal); R09.81 Nasal congestion; R13.10 Dysphagia, unspecified; F17.210 Nicotine dependence, cigarettes, uncomplicated
CPT/HCPCS: 87070; 87880; 99283; A9270